=== PATIENT | female | born 1995 | race Caucasian/White ===

== ENCOUNTER 2017-07-08 19:00 | Inpatient (IN) | payer OTHER ==
[~2017-07-08] VITALS: Ht 162.6 cm; Wt 96.6 kg
[2017-07-08] MEDS: LACTATED RINGERS 1,000 ML IV SCH (21:04)
[2017-07-08] MEDS: AMPICILLIN 2,000 MG in NACL 0.9% 100 ML IV SCH (21:06)
[2017-07-08] MEDS: ACETAMINOPHEN 325 MG TAB PO PRN (21:11)
[2017-07-08] MEDS ORDERED: ACETAMINOPHEN 325 MG TAB ONE (21:11)
[2017-07-09] MEDS: AMPICILLIN 2,000 MG in NACL 0.9% 100 ML IV SCH ×3 (01:16→09:20)
[2017-07-09] MEDS ORDERED: AMPICILLIN 2,000 MG VIAL ONE ×6 (01:17→21:02)
[2017-07-09] MEDS: LACTATED RINGERS 1,000 ML IV SCH ×2 (03:09→10:41)
[2017-07-09] MEDS: ACETAMINOPHEN 325 MG TAB PO PRN ×2 (05:41→19:52)
[2017-07-09] MEDS ORDERED: GENTAMICIN 80 MG in DEXTROSE 5% 100 ML IV SCH (06:41)
[2017-07-09] MEDS ORDERED: GENTAMICIN PER PHARMACY MC PRN (06:45)
--- NOTE | 2017-07-09 08:55 | NUR ---
PATIENT HAS BEEN SCREENED AND CATEGORIZED LOW NUTRITION RISK. PATIENT WILL BE SEEN WITHIN 7 DAYS OF ADMISSION. 07/15/[address]
[2017-07-09] MEDS: GENTAMICIN 120 MG in DEXTROSE 5% 100 ML IV SCH ×3 (09:11→23:30)
[2017-07-09] MEDS ORDERED: AMPICILLIN 1,000 MG VIAL ONE (09:46)
[2017-07-09] MEDS ORDERED: ACETAMINOPHEN 325 MG TAB ONE ×2 (11:17→19:31)
[2017-07-09 13:46] LABS: BASOPHILS % (AUTO) 0.7 % (0.0-2.0); EOSINOPHILS % (AUTO) 0.1 % (0.0-4.0); HEMATOCRIT 25.5 % (36-48); HEMOGLOBIN 8.2 g/dL (12.0-16.0); LYMPHOCYTES # (AUTO) 0.9 K/uL (2.5-16.5); LYMPHOCYTES % (AUTO) 12.2 % (20.5-51.1); MEAN CORPUSCULAR HEMOGLOBIN 22 pg (27-31); MEAN CORPUSCULAR HGB CONC 32 g/dL (33-37); MEAN CORPUSCULAR VOLUME 68.4 fL (80-94); MONOCYTES # (AUTO) 0.5 K/uL (0.8-1.0); MONOCYTES % (AUTO) 7.5 % (1.7-9.3); NEUTROPHILS # (AUTO) 5.7 K/uL (1.8-7.7); NEUTROPHILS % (AUTO) 79.5 % (42.2-75.2); PLATELET COUNT (AUTO) 98 K/uL (140-450); RED BLOOD CELL COUNT(AUTO) 3.73 MIL/uL (4.20-5.40); RED CELL DISTRIBUTION WIDTH 17.6 % (11.6-13.7); WHITE BLOOD COUNT (AUTO) 7.2 K/uL (4.8-10.8)
[2017-07-09 13:51] LABS: ANION GAP 14.7 (8-16); CARBON DIOXIDE 22.6 mmol/L (21-32); CREATININE 0.6 mg/dL (0.6-1.3); POTASSIUM 3.3 mmol/L (3.5-5.1)
[2017-07-10] MEDS ORDERED: AMPICILLIN 2,000 MG VIAL ONE ×5 (01:39→13:09)
[2017-07-10] MEDS ORDERED: ACETAMINOPHEN 325 MG TAB ONE (04:59)
[2017-07-10 09:46] LABS: HEMATOCRIT 24.7 % (36-48); MEAN CORPUSCULAR HEMOGLOBIN 22 pg (27-31); MEAN CORPUSCULAR HGB CONC 32 g/dL (33-37); MEAN CORPUSCULAR VOLUME 68.4 fL (80-94); PLATELET COUNT (AUTO) 104 K/uL (140-450); RED BLOOD CELL COUNT(AUTO) 3.62 MIL/uL (4.20-5.40); RED CELL DISTRIBUTION WIDTH 17.7 % (11.6-13.7); WHITE BLOOD COUNT (AUTO) 6.7 K/uL (4.8-10.8)
[2017-07-10] MEDS: GENTAMICIN 120 MG in DEXTROSE 5% 100 ML IV SCH (10:00)
[2017-07-10 10:19] LABS: EOSINOPHILS % (MANUAL) 2 % (0-4); LYMPHOCYTES % (MANUAL) 18 % (20-46); MONOCYTES % (MANUAL) 10 % (5-12)
[2017-07-10 10:45] LABS: ANION GAP 14.4 (8-16); CREATININE 0.5 mg/dL (0.6-1.3); POTASSIUM 3.4 mmol/L (3.5-5.1)
[2017-07-10] MEDS: AMPICILLIN 2,000 MG in NACL 0.9% 100 ML IV SCH (13:20)
--- NOTE | 2017-07-12 13:44 | NUR ---
CLINICAL REVIEW FAXED TO [facility] [phone]
== END 2017-07-10 16:55 | disposition home or self-care (01) | DRG 566 ==
LOC: MLD 19:00 → OBSVTOIN 07-09 17:45 → MFCC 07-09 18:09
PROVIDERS: ADMIT Obstetrics & Gynecology; ATTEND Obstetrics & Gynecology
DX: O23.03 Infections of kidney in pregnancy, third trimester (principal); Z3A.35 35 weeks gestation of pregnancy; N10 Acute pyelonephritis
CPT/HCPCS: 36415; 76805; 80048; 80170; 85025; G0378; J0290; J1580; J7030; J7060; J7120; Q0092